=== PATIENT | female | born 1985 | race Asian ===

== ENCOUNTER 2022-08-17 21:18 | Inpatient (IN) ==
[2022-08-17] MEDS ORDERED: OXYTOCIN 30 UNITS/500 ML BAG IV PRN ×2 (22:18)
[2022-08-17] MEDS ORDERED: LIDOCAINE 1% LOCAL 20 ML VIAL INFIL PRN (22:18)
--- NOTE | 2022-08-17 22:26 | History & Physical Report ---
Date of Service August 17, 2022 Assessment & Plan (1) SROM (spontaneous rupture of membranes): Plan: 36 yo G1 at 38 4/7 wga presents w/ SROM VSS Fetus cat 1 Labor - will recheck in a few hours and see if makes progression A1GDM - will check initial BG GBS neg Epidural PRN History of Present Illness Chief Complaint: LOF Primary Care Provider: Yesica Martin 36 yo G1 at 38 4/7 wga presents w/ LOF this evening. Was jennifer frequently and had spotting throughout the day before large gush. +FM, manageable ctx PNI: GDM Past [employer] Hx: G1 regular cycles denies hx STIs 07/2021 neg cotest Allergies Allergy/AdvReac Type Severity Reaction Status Date / Time No Known Allergies Allergy Verified 08/17/22 21:38 Home Medications Medication Instructions Recorded Confirmed Type prenat.vits,ceasar,tfe-mmqd-jpqni 1 tab PO DAILY 01/04/22 08/17/22 History acetone (urine) test (Ketone Urine #50 ea 03/27/22 08/09/22 Rx Test strips) blood sugar diagnostic (OneTouch #150 ea 03/27/22 08/09/22 Rx Verio test strips) blood-glucose meter (OneTouch #1 ea 03/27/22 08/09/22 Rx Verio Reflect Meter) lancets 33 gauge (OneTouch Delica #150 ea 03/27/22 08/09/22 Rx Lancets) Patient History Medical History (Updated 08/17/22 @ 22:25 by Luisa Curry MD) Gestational diabetes Diet controlled Patient denies significant medical history Surgical History No history of previous surgery Family History Sister Breast cancer Father Hypertension Denies family history of Ovarian cancer Colorectal cancer Social History (Updated 01/04/22 @ 10:04 by Mine Vásquez) Smoking Status: Never smoker Hx Alcohol Use: No Hx Substance Use: No Preferred Language: Mandarin [place] Communication Ability: Effective Accreditation Specialist Required: No Beliefs That Will Affect Care: None marital status: marital status details: Cristela Talley (34) [phone] Current Living Situation: Spouse Current Living Situation Comment: lives with spouse, no pets current occupational status: unemployed Other Information That Helps Us Care for You: No Feels Safe at Home: Yes Safety Concerns: Feels Safe At This Time Assistive Devices: Glasses Physical Exam Genitourinary: OB Exam Abdomen: + vertex (confirmed by US) and + estimated weight (6-7) Manual OB Exam: + cervical dilation (3-4), + cervical effacement 70%, + station -2 and + amniotic fluid (+nitrazine, pooling, ferning) OB Exam Monitor Tracing: + external FHT monitor used, + external uterine monitor used (q4-5) and + category I (140/mod/+accel/-decel) Results & Data ([facility]) Vital Signs (Past 12 Hours) Vital Signs Temp Pulse Resp BP 08/17/22 21:36 72 124/77 08/17/22 21:39 98.6 F 18 Laboratory Results OB Labs: Blood Type O Positive 01/11/22 A Antibody Screen NEGATIVE 01/11/22 Hemoglobin 11.3 g/dl (12.0-16.0) L 06/07/22 Hematocrit 32.7 % (34.1-44.9) L 06/07/22 Mean Corpuscular Volume 82.9 fL (80-100) 01/11/22 Platelet Count 236 K/uL (130-400) 01/11/22 Varicella-Zoster IgG Antibody 599.70 index 01/11/22 Rubella IgG Antibody Immune (Immune) 01/11/22 Rapid Plasma Reagin Nonreactive (Nonreactive) 01/11/22 Hepatitis B Surface Antigen. NON-REACTIVE (NON-REACTIVE) 01/11/22 Hepatitis C Antibody (EIA) NON-REACTIVE (NON-REACTIVE) 01/11/22 HIV (1&2) Ag and Ab Confirmation NON-REACTIVE (NON-REACTIVE) 01/11/22 Glucose 1 Hour 50 gm Load 149 mg/dl (70-130) H 03/15/22 OB Optional Labs: Chlamydia trachomatis RNA NOT DETECTED (NOT DETECTED) 01/11/22 Neisseria gonorrhoeae RNA NOT DETECTED (NOT DETECTED) 01/11/22 Thyroid Stimulating Hormone (TSH) 3.038 uIu/ml (0.300-4.500) 06/07/22 Labs Reviewed: cfdna-low risk--mln GBS neg Diagnostic Findings 07/19 EFW 2206g 20%,post plac Coding Level of Care Code None Diagnoses SROM (spontaneous rupture of membranes)
[2022-08-17] MEDS: LACTATED RINGER'S 1,000 ML IV PRN (22:28)
[2022-08-17 23:32] LABS: Hematocrit (blood only) 35.4 % (34.1-44.9); Hemoglobin 12.2 g/dl (12.0-16.0); Mean Corpuscular Hemoglobin 31.8 pg (25.0-34.0); Mean Corpuscular Hgb Conc 34.5 g/dL (32.0-36.0); Mean Corpuscular Volume 92.2 fL (80.0-100.0); Mean Platelet Volume 9.8 fL (9.4-12.3); Platelet Count 167 K/uL (130-400); RDW Standard Deviation 42.8 fL (36.4-46.3); Red Blood Count 3.84 M/uL (3.93-5.22); White Blood Count 7.46 K/ul (4.8-10.8)
[2022-08-17] MEDS ORDERED: SODIUM CHLORIDE 0.9% INJ 10 ML VIAL ONE (23:43)
[2022-08-17] MEDS ORDERED: BUPIVACAINE 0.25% 30 ML VIAL ONE (23:43)
[2022-08-17] MEDS ORDERED: ePHEDrine sulfate 50 MG/ML AMP ONE (23:43)
[2022-08-17] MEDS ORDERED: LIDOCAINE 2%/EPINEPHRINE 1:200,000 20 ML SDV ONE (23:43)
[2022-08-17] MEDS ORDERED: fentaNYL citrate 100 MCG/2 ML VIAL ONE (23:43)
[2022-08-17] MEDS ORDERED: fentaNYL 2MCG/ML ROPIVACAINE 1.25MG/ML 100 ML BAG EPI ONE (23:44)
[2022-08-18] MEDS ORDERED: NALBUPHINE HCL INJ 10 MG/ML AMP IV PRN (00:08)
[2022-08-18] MEDS ORDERED: ePHEDrine sulfate 50 MG/ML AMP IV PRN (00:08)
[2022-08-18] MEDS ORDERED: ONDANSETRON INJ 2 MG/ML 2 ML VIAL IV PRN (00:08)
[2022-08-18] MEDS ORDERED: NALOXONE HCL 0.4 MG/1 ML VIAL/CARP IV PRN (00:08)
[2022-08-18] MEDS ORDERED: diphenhydrAMINE 50 MG/ML VIAL IV PRN (00:08)
[2022-08-18] MEDS ORDERED: NALOXONE HCL 1 MG in SODIUM CHLORIDE 0.9% 1000ML 1,000 ML IV PRN (00:08)
--- NOTE | 2022-08-18 00:11 | Anesthesiology Consultation ---
Date of Service August 18, 2022 Assessment & Plan Chart Review Chart Review: Patient NOT seen in Pre Admission Testing and Acceptable Risk for Labor Epidural Consults Requested none ASA ASA2 Proposed Anesthesia Anesthesia Type: Labor Epidural and CSE Risk / Benefits Reviewed With: PT / POA / Parent / Guardian, Accepts Plan and Informed Consent Obtained History Height/Weight Height: 5 ft 1.02 in Weight: 49.895 kg Allergies Allergy/AdvReac Type Severity Reaction Status Date / Time No Known Allergies Allergy Verified 08/17/22 21:38 Medications Home Medications Medication Instructions Recorded Confirmed Last Taken prenat.vits,ceasar,ept-vyzh-itosc 1 tab PO DAILY 01/04/22 08/17/22 08/17/22 acetone (urine) test (Ketone Urine #50 ea 03/27/22 08/09/22 Unknown Test strips) blood sugar diagnostic (OneTouch #150 ea 03/27/22 08/09/22 Unknown Verio test strips) blood-glucose meter (OneTouch #1 ea 03/27/22 08/09/22 Unknown Verio Reflect Meter) lancets 33 gauge (OneTouch Delica #150 ea 03/27/22 08/09/22 Unknown Lancets) Active Medications Generic Name Dose Route Start Last Admin Trade Name Freq PRN Reason Stop Dose Admin Lactated Ringer's 1,000 mls @ 125 mls/hr 08/17/22 22:18 08/17/22 23:40 Lr IV 08/19/22 22:17 999 mls/hr .Q8H PRN Infusion L&D Protocol Protocol NPO Date Last Intake of Fluids: 08/17/22 Time Last Intake of Fluids: 21:00 Date Last Intake of Solids: 08/17/22 Time Last Intake of Solids: 18:30 Past Medical History Medical History Gestational diabetes Diet controlled Patient denies significant medical history Exercise / Class Metabolic Activity II 4-5 Yardwork/Stairs/Walk up hill Past Family History Family History Sister Breast cancer Father Hypertension Denies family history of Ovarian cancer Colorectal cancer Past Surgical History Surgical History No history of previous surgery Past Anesthesia History No Hx of Anesthesia Complications and No Family Hx of Anesthesia Complications History of PONV No Hx of PONV and No Hx of Motion Sickness Social History Smoking Status: Never smoker Hx Alcohol Use: No Hx Substance Use: No substance use type: does not use Review of Systems no chest pain or sob Physical Exam Vital Signs Last Vital Signs Temp 37.1 C 08/17/22 23:30 Pulse 63 08/18/22 00:08 Resp 18 08/17/22 23:30 BP 121/67 08/17/22 23:52 Pulse Ox 96 08/18/22 00:08 ENMT Mouth: no TMJ abnormality Thyromental Distance: > or= 3.5 Finger Breadths Mallampati Class: II Neck normal visual inspection Respiratory normal respiratory effort Auscultation: lungs clear to auscultation bilaterally Cardiovascular Rate/Rhythm: regular rate and regular rhythm Musculoskeletal Spine: normal cervical ROM Neurologic moves all extremities Psychiatric Orientation: alert and oriented x 3 Testing Laboratory Results 08/17/22 22:54 08/17/22 22:23 POC Glucose 99
[2022-08-18] MEDS: fentaNYL 2MCG/ML ROPIVACAINE 1.25MG/ML 100 ML BAG EPI PRN ×2 (00:33→10:40)
[2022-08-18] MEDS: LACTATED RINGER'S 1,000 ML IV PRN (00:41)
--- NOTE | 2022-08-18 09:28 | Labor Progress Brief Note ---
Date of Service August 18, 2022 Subjective pt not feeling much pressure Assessment & Plan (1) Supervision of normal first : (2) SROM (spontaneous rupture of membranes): (3) Gestational diabetes mellitus (GDM) affecting , antepartum: Plan Begin 2nd stage, pt aware i am taking over care. FHTS categ 1. may need to add pitocin if ctx do not stay close together. pt concerned does not feel anything, ie pressure to push and so epidural settings decreased rate. Admission and Anticipated Discharge Date Admission Date: August 17, 2022 Physical Exam Constitutional: WD/WN, vitals as above Genitourinary: Manual OB Exam: + cervical dilation 10 cm, + cervical effacement 100% and + station + 2 (with pushing) OB Exam Monitor Tracing: + external FHT monitor used, + external uterine monitor used (q3-4), + category I and + normal FHT variability of notes bright red blood coming from laceration at introitus. Results & Data ([facility]) Vital Signs (Past 12 Hours) Vital Signs Temp Pulse Resp BP Pulse Ox 08/18/22 07:00 98.4 F 16 08/18/22 09:18 91 H 96 08/18/22 09:17 87 93 08/18/22 09:16 90 103/59 L 08/18/22 09:13 93 H 96 08/18/22 09:08 86 95 08/18/22 09:03 77 96 08/18/22 08:58 74 96 08/18/22 08:59 72 80/41 L 08/18/22 08:55 76 94 08/18/22 08:53 85 96 08/18/22 08:48 79 96 08/18/22 08:45 73 87/49 L 89 L 08/18/22 08:43 79 96 08/18/22 08:38 77 95 08/18/22 08:33 77 96 08/18/22 08:30 75 90 08/18/22 08:31 75 90/55 L 08/18/22 08:28 84 96 08/18/22 08:24 83 94 08/18/22 08:23 81 96 08/18/22 08:18 82 96 08/18/22 08:15 82 88/51 L 90 08/18/22 08:13 82 96 08/18/22 08:08 82 96 08/18/22 08:03 88 96 08/18/22 08:00 81 16 85/51 L 88 L 08/18/22 07:58 80 96 08/18/22 07:53 79 96 08/18/22 07:48 77 96 08/18/22 07:45 75 88/53 L 94 08/18/22 07:43 78 96 08/18/22 07:38 75 96 08/18/22 07:33 80 97 08/18/22 07:30 75 88/54 L 94 08/18/22 07:28 75 97 08/18/22 07:23 76 97 08/18/22 07:18 74 98 08/18/22 07:15 77 08/18/22 07:15 77 95/52 L 94 08/18/22 07:13 83 97 08/18/22 07:08 78 97 08/18/22 07:03 81 97 08/18/22 07:00 74 93/55 L 91 08/18/22 06:58 82 97 08/18/22 06:53 75 97 08/18/22 06:48 74 97 08/18/22 06:45 77 92/55 L 92 08/18/22 06:43 80 97 08/18/22 06:38 84 97 08/18/22 06:33 84 97 08/18/22 06:30 98.4 F 74 18 89/51 L 08/18/22 06:28 72 97 08/18/22 06:23 72 98 08/18/22 06:18 79 97 08/18/22 06:16 76 93/54 L 08/18/22 06:13 77 97 08/18/22 06:08 74 97 08/18/22 06:03 74 96 08/18/22 05:17 16 08/18/22 05:17 16 08/18/22 05:59 71 86/52 L 08/18/22 05:58 74 96 08/18/22 05:53 76 97 08/18/22 05:48 75 96 08/18/22 05:45 72 85/48 L 08/18/22 05:43 74 95 08/18/22 05:38 87 97 08/18/22 05:33 76 96 08/18/22 05:30 74 88/54 L 08/18/22 05:28 79 98 08/18/22 05:23 83 97 08/18/22 05:18 76 96 08/18/22 05:13 74 96 08/18/22 05:14 73 89/54 L 94 08/18/22 05:08 75 96 08/18/22 05:03 73 96 08/18/22 05:00 71 85/48 L 08/18/22 04:58 71 96 08/18/22 04:53 71 96 08/18/22 04:41 18 08/18/22 04:41 98.8 F 18 08/18/22 04:48 77 96 08/18/22 04:43 72 97 08/18/22 04:44 72 94/52 L 08/18/22 04:38 75 96 08/18/22 04:33 69 96 08/18/22 04:28 70 97 08/18/22 04:23 69 96 08/18/22 04:18 67 96 08/18/22 04:15 67 92/53 L 08/18/22 04:13 66 96 08/18/22 04:08 66 96 08/18/22 04:03 70 97 08/18/22 04:00 18 08/18/22 04:00 18 08/18/22 03:59 67 95/54 L 08/18/22 03:58 74 97 08/18/22 03:53 67 97 08/18/22 03:48 68 97 08/18/22 03:46 69 91/53 L 08/18/22 03:42 18 08/18/22 03:42 98.6 F 18 08/18/22 03:43 70 97 08/18/22 03:38 68 96 08/18/22 03:33 71 96 08/18/22 03:30 71 97/53 L 08/18/22 03:28 87 98 08/18/22 03:23 83 96 08/18/22 03:18 80 97 08/18/22 03:14 79 88/49 L 08/18/22 03:13 77 96 08/18/22 03:08 82 96 08/18/22 03:03 75 96 08/18/22 02:58 76 96 08/18/22 02:59 74 97/51 L 93 08/18/22 02:53 77 97 08/18/22 02:48 74 96 08/18/22 02:46 75 98/51 L 08/18/22 02:44 76 93 08/18/22 02:43 76 96 08/18/22 02:38 75 97 08/18/22 02:33 73 96 08/18/22 02:30 72 91/52 L 92 08/18/22 02:28 74 96 08/18/22 02:23 75 97 08/18/22 02:18 73 96 08/18/22 02:14 71 94/55 L 08/18/22 02:13 76 97 08/18/22 02:08 81 98 08/18/22 02:05 14 08/18/22 02:05 14 08/18/22 02:03 74 97 08/18/22 02:00 72 91/52 L 94 08/18/22 01:58 72 97 08/18/22 01:53 73 97 08/18/22 01:48 73 98 08/18/22 01:44 71 91/55 L 08/18/22 01:43 73 96 08/18/22 01:38 72 97 08/18/22 01:35 16 08/18/22 01:35 98.6 F 16 08/18/22 01:33 71 98 08/18/22 01:31 79 93 08/18/22 01:30 75 119/51 L 08/18/22 01:28 78 99 08/18/22 01:23 72 96 08/18/22 01:18 74 98 08/18/22 01:14 70 95/52 L 08/18/22 01:13 77 97 08/18/22 01:08 74 98 08/18/22 01:03 72 98 08/18/22 00:58 69 98 08/18/22 00:57 70 91/52 L 08/18/22 00:30 18 08/18/22 00:30 18 08/18/22 00:53 71 96/55 L 98 08/18/22 00:48 68 98 08/18/22 00:46 73 93/50 L 08/18/22 00:43 97 08/18/22 00:43 67 08/18/22 00:43 88/51 L 08/18/22 00:43 68 88/50 L 08/18/22 00:42 66 93 08/18/22 00:40 65 16 93/51 L 08/18/22 00:38 97 08/18/22 00:38 66 08/18/22 00:38 65 93/55 L 08/18/22 00:35 63 16 94/52 L 08/18/22 00:33 67 98 08/18/22 00:34 65 93/50 L 08/18/22 00:31 65 94/44 L 08/18/22 00:28 67 124/71 97 08/18/22 00:23 68 97 08/18/22 00:18 96 08/18/22 00:18 76 08/18/22 00:18 152 H 94 08/18/22 00:13 71 96 08/18/22 00:08 63 96 08/18/22 00:03 65 97 08/17/22 23:58 76 97 08/17/22 23:53 66 98 08/17/22 23:52 65 121/67 08/17/22 23:48 70 99 08/17/22 23:30 18 08/17/22 23:30 98.8 F 18 08/17/22 21:36 72 124/77 08/17/22 21:39 98.6 F 18 Coding Level of Care Code None Diagnoses Supervision of normal first Z34.00 SROM (spontaneous rupture of membranes) Gestational diabetes mellitus (GDM) affecting , antepartum O24.419
--- NOTE | 2022-08-18 12:37 | Delivery Summary ---
Vaginal Delivery Summary Date of Service August 18, 2022 Vaginal Delivery Summary VAVD Patient was pushing for over an hour and a half and having some hymenal tearing she was hitting a point of exhaustion with deep D cells during her pushes I did offer vacuum assist as it was +2 station discussed risk benefits and alternatives patient wished vacuum Procedure station +2 occiput anterior bladder drained with a Laws catheter and then removed 400 cc vacuum applied to the head baby was delivered over 1 contraction with gentle help from the vacuum and a small right mediolateral episiotomy baby's head was delivered mouth and then nares suctioned no nuchal cord clear fluid gentle traction live vigorous female infant cord clamped and cut cord gases obtained cord blood obtained placenta removed with gentle traction IV Pitocin started right mediolateral episiotomy repaired along with the small hymenal tearing from before at the end the procedure hemostasis was appropriate sponge and instrument counts correct estimated blood loss 300 mL [facility] Vaginal Delivery Charge Delivery Type Details: [facility]
[2022-08-18] MEDS ORDERED: BENZOCAINE 20% AER SPR 82.5 GM CAN EXT PRN (12:40)
[2022-08-18] MEDS ORDERED: OXYTOCIN 30 UNITS/500 ML BAG IV PRN (12:40)
[2022-08-18] MEDS ORDERED: bisacodyL 10 MG SUPP PR PRN (12:40)
[2022-08-18] MEDS ORDERED: DIPHTHERIA/TETANUS/PERTUSSIS 0.5 ML SYR/VIAL IM ONE (12:40)
[2022-08-18] MEDS ORDERED: ACETAMINOPHEN 325 MG TAB PO PRN (12:40)
[2022-08-18 13:09] LABS: Base Excess Cord Arterial Bld -7.4 mEq/L (-9-1.8); CO2 Cord Arterial Blood 52 mmHg (39.1-73.5); HCO3 Cord Arterial Blood 21 mmol/L (19.7-28.5); Oxygen Sat Cord Arterial Blood < 60.0 % (<60); PO2 Cord Arterial Blood 28 mmHg (4.1-31.7); pH Cord Arterial Blood 7.21 (7.1-7.38)
[2022-08-18 13:17] LABS: Base Excess Cord Venous Blood -5.7 mEq/L (-7.7-1.9); Cord Venous Blood HCO3 21 mmol/L (18.4-26.8); Cord Venous Blood PCO2 45 mmHg (30.4-57.2); Cord Venous Blood PO2 33 mmHg (14.1-43.3); Cord Venous Blood pH 7.28 (7.20-7.44); O2 Saturation Cord Venous Bld 66.2 % (<68)
[2022-08-18] MEDS: IBUPROFEN 600 MG TAB PO PRN (14:39)
[2022-08-18] MEDS: DOCUSATE SODIUM 100 MG CAP PO SCH (22:30)
--- NOTE | 2022-08-19 05:32 | Obstetrical Progress Note ---
Date of Service August 19, 2022 Assessment & Plan (1) care following vaginal delivery: (2) Gestational diabetes mellitus (GDM) affecting , antepartum: Plan - Overall, feeling well and eating well today - Infant breast feeding going well, concerns regarding nipple pain discussed - Urinating and passing gas appropriately - Ambulating well in room - Pain controlled w/ Ibuprofen - Hgb 12.2 on 08/17 - Vitals stable, BP 96/64 P 68 - Routine PP care progressing well - Anticipate discharge @ 24-48 hours PP - Recommending f/u outpatient in 6 weeks Admission and Anticipated Discharge Date Admission Date: August 17, 2022 Supervising Physician Co-Signing Physician Notes Resident Physician Supervision Note: I was present with Dr. Mg during the history and exam. I discussed the case with the resident and agree with the findings and plan as documented in the note. Any exceptions or clarifications are listed here: pt notes some bottom soreness and swollen hemorrhoids. they were noted during labor. advised keeping bowels soft and regular. not straining. ff 2 down, nt, ext nt calves. routine pp care. Documented By: Sabrina Koch MD, FACOG Subjective Patient is a 36 y/o female who is PPD #1 following vacuum assisted vaginal delivery at 38 5/7. She reports feeling well overall this morning, but notes that she is experiencing a significant amount of pain with breast feeding. - Ambulation - well throughout room - Voiding/Laws - independent voids, no dysuria or pressure - Gas/Stool - passing gas, no bowel movement - Diet - regular, no nausea or emesis - Lochia - diminishing, light amount - Feeding Type - breast feeding, nipple pain, using cream - Pain Level - 5/10, controlled with Ibuprofen Review of Systems - Denies fever, chills, sweats - Denies shortness of breath, difficulty breathing, chest pain, palpitations, chest pressure. - Denies breast pain. - Denies dysuria. - Denies headache or changes in vision. Physical Exam Physical Exam: General: Alert, oriented. No acute distress. Cardiac: RRR, normal S1/S2, no murmurs/rubs/gallops. Respiratory: Non-labored, CTAB, no wheezes/rales/rhonchi. Symmetric chest rise. Abdomen: Soft, nontender, nondistended. Bowel sounds present. Uterus: Uterine fundus firm, palpable at umbilicus. Lower Extremities: No lower extremity edema or swelling. No deep calf pain. Myra's negative bilaterally. Results & Data ([facility]) Vital Signs (Past 12 Hours) Vital Signs Temp Pulse Resp BP Pulse Ox O2 Del Method 08/19/22 03:09 36.8 C 68 18 96/64 L 98 Room Air 08/19/22 00:40 Room Air 08/18/22 23:24 36.8 C 69 18 106/71 98 Room Air 08/18/22 19:45 36.9 C 71 16 96/60 L Room Air Resident Activity Tracking Resident Involvement: Resident Care Provided Care Provided: OB Delivery
[2022-08-19] MEDS: IBUPROFEN 600 MG TAB PO PRN ×2 (06:40→14:29)
[2022-08-19 07:02] LABS: Hematocrit (blood only) 28.3 % (34.1-44.9); Hemoglobin 9.6 g/dl (12.0-16.0); Mean Corpuscular Hemoglobin 31.7 pg (25.0-34.0); Mean Corpuscular Hgb Conc 33.9 g/dL (32.0-36.0); Mean Corpuscular Volume 93.4 fL (80.0-100.0); Mean Platelet Volume 9.6 fL (9.4-12.3); Platelet Count 122 K/uL (130-400); RDW Coefficient of Variation 13.1 % (11.5-14.5); RDW Standard Deviation 44.2 fL (36.4-46.3); Red Blood Count 3.03 M/uL (3.93-5.22)
[2022-08-19] MEDS: PRENATAL VITAMIN 1 TAB PO SCH (08:20)
[2022-08-19] MEDS: DOCUSATE SODIUM 100 MG CAP PO SCH ×2 (08:20→20:13)
[2022-08-19] MEDS: HYDROCORTISONE ACETATE 25 MG SUPP PR PRN (08:21)
[2022-08-19] MEDS ORDERED: bisacodyL 5 MG TABEC PO SCH (20:00)
[2022-08-20] MEDS: IBUPROFEN 600 MG TAB PO PRN ×2 (00:06→08:31)
[2022-08-20 08:06] LABS: Hemoglobin 9.4 g/dl (12.0-16.0)
[2022-08-20] MEDS: HYDROCORTISONE ACETATE 25 MG SUPP PR PRN (08:31)
[2022-08-20] MEDS: PRENATAL VITAMIN 1 TAB PO SCH (08:31)
[2022-08-20] MEDS: DOCUSATE SODIUM 100 MG CAP PO SCH (08:31)
--- NOTE | 2022-08-20 08:42 | Obstetrical Progress Note ---
Date of Service August 20, 2022 Assessment & Plan (1) care following vaginal delivery: day #2 from a vacuum-assisted vaginal delivery the patient had pre- existing hemorrhoids from and these are certainly bothering her now I will send in a prescription for hemorrhoids we discussed typically these improve over the next few weeks postdelivery. Care discussed Subjective Ambulation: ambulating normally Voiding: no voiding problems Passing Gas:: Yes Diet Tolerance:: regular diet Lochia:: Small Constitutional: + as per Subjective / HPI Physical Exam Constitutional WD/WN, vitals as above well developed and well nourished Respiratory normal respiratory effort, lungs clear to auscultation normal respiratory effort Cardiovascular RRR, no murmur, no edema Gastrointestinal (Abdomen) normal bowel sounds, soft, nontender, no hepatosplenomegaly Results & Data ([facility]) Vital Signs (Past 12 Hours) Vital Signs Temp Pulse Resp BP Pulse Ox O2 Del Method 08/19/22 23:48 98.8 F 74 18 115/74 97 Room Air
== END 2022-08-20 16:15 | disposition home or self-care (01) | DRG 806 ==
LOC: OPB 21:18 → 4S1 21:19 → 4E2 08-18 15:59
DX: O24.420 Gestational diabetes mellitus in childbirth, diet controlled; Z3A.38 38 weeks gestation of pregnancy; O75.81 Maternal exhaustion complicating labor and delivery; O71.4 Obstetric high vaginal laceration alone; Z37.0 Single live birth